=== PATIENT | male | born 1965 | race Caucasian/White ===

== ENCOUNTER 2018-07-12 08:34 | Emergency (ER) | payer MEDICAID ==
[~2018-07-12] VITALS: Ht 165.1 cm; Wt 83.9 kg
[2018-07-12 08:39] VITALS: BP 155/100; Ht 165.1 cm; Wt 83.9 kg
== END 2018-07-12 09:59 | disposition home or self-care (01) ==
LOC: ED 08:34
DX: S83.91XA Sprain of unspecified site of right knee, initial encounter (principal); I10 Essential (primary) hypertension; E11.9 Type 2 diabetes mellitus without complications; E78.00 Pure hypercholesterolemia, unspecified; Z88.0 Allergy status to penicillin; W01.0XXA Fall on same level from slipping, tripping and stumbling without subsequent striking against object, initial encounter; Y93.89 Activity, other specified; Y92.89 Other specified places as the place of occurrence of the external cause; Y99.8 Other external cause status

== ENCOUNTER 2019-03-08 12:22 | Emergency (ER) | payer MEDICAID ==
[~2019-03-08] VITALS: Ht 165.1 cm; Wt 81.2 kg
[2019-03-08 12:31] VITALS: Ht 165.1 cm; Wt 81.2 kg
[2019-03-08 14:56] LABS: BASOPHIL % 0.5 % (0-2); PLATELET COUNT 190 x10^3mcL (130-400); RED CELL DISTRIBUTION WIDTH 13.1 % (11.5-14.5)
[2019-03-08 15:03] LABS: CARBON DIOXIDE 28.4 mmol/L (21-32); CHLORIDE SERUM 105 mmol/L (98-107); GFR1 > 60 mL/min; GLUCOSE SERUM 277 mg/dL (74-106); POTASSIUM SERUM 4.4 mmol/L (3.5-5.1); SODIUM SERUM 141 mmol/L (136-145)
[2019-03-08 15:03] LABS: UA SPECIFIC GRAVITY <=1.005 (1.005-1.035); microscopic required? YES; urine erythrocyte 1+ (NEGATIVE)
[2019-03-08 15:08] LABS: ALBUMIN 3.8 g/dL (3.4-5.0); ALKALINE PHOSPHATASE 113 U/L (46-116); ALT/SGPT 37 U/L (16-63); AST/SGOT 15 U/L (15-37); BILIRUBIN TOTAL 0.4 mg/dL (0.20-1.00); TOTAL PROTEIN, SERUM 7.1 g/dL (6.4-8.2)
[2019-03-08 16:46] VITALS: BP 143/78
== END 2019-03-08 16:46 | disposition home or self-care (01) ==
LOC: ED 12:22
PROVIDERS: Emergency Medicine
DX: F41.9 Anxiety disorder, unspecified (principal); E11.65 Type 2 diabetes mellitus with hyperglycemia; I10 Essential (primary) hypertension; F17.200 Nicotine dependence, unspecified, uncomplicated; Z88.0 Allergy status to penicillin
CPT/HCPCS: 36415; 99406